=== PATIENT | male | born 1945 | race Caucasian/White ===

== ENCOUNTER → 2016-09-02 | Outpatient (CLI) | payer OTHER, BC ==
[~2016-09-02] MED LIST: ALPR-411 PO; ASPI81TA28 PO; GLUC1TAB8 PO; IBUP-103 PO; MULT-845 PO; OMEG10007 PO; PRDFOPS; [UNRECOGNIZED DRUG - OTHER]
--- NOTE | 2016-09-02 10:37 | DIAGNOSTIC IMAGING REPORT ---
RENAL ULTRASOUND CLINICAL HISTORY: Urinary tract infection. Urinary retention. COMPARISON STUDY: Renal ultrasound August 20, 2015. TECHNIQUE: Sonography of the kidneys and the urinary bladder was performed. FINDINGS: The right kidney measures 10.3 cm in maximal dimension and the left measures 10.7 cm. There is no hydronephrosis. Renal echogenicity is normal. A few tiny renal cysts are noted. There is minimal renal cortical thinning. No mass is identified by sonography. No calculi are identified. There is no significant post void residual. The post void volume of the bladder with 3 cc. Note is again made of irregular wall thickening of the bladder which has been shown on prior exams. The wall appears trabeculated. IMPRESSION: 1. No hydronephrosis. 2. No significant post void residual. 3. Irregular trabeculated bladder wall which has been shown on prior exams. While nonspecific, this may be related to bladder outlet obstruction. Electronically signed by: Ariel Goodwin M.D. 09/02/2016 10:36 AM Dictated Date/Time: 09/02/2016 10:32 AM
== END | disposition home or self-care (01) ==
LOC: C.ULTR 09:24
PROVIDERS: ATTEND Urology
DX: N39.0 Urinary tract infection, site not specified (principal); R33.9 Retention of urine, unspecified

== ENCOUNTER → 2016-09-05 | Outpatient (CLI) | payer OTHER, BC | END | disposition home or self-care (01) | LOC: C.LAB1850 12:52 | PROVIDERS: ATTEND Internal Medicine | DX: Z11.59 Encounter for screening for other viral diseases (principal) ==

== ENCOUNTER → 2016-11-15 | Outpatient (CLI) | payer OTHER, BC ==
[2016-11-15 18:08] LABS: BLOOD UREA NITROGEN 23 mg/dl (7-18); BUN/CREATININE RATIO 16.4 (10-20); CALCIUM 9.3 mg/dl (8.5-10.1); CARBON DIOXIDE 29 mmol/L (21-32); CHLORIDE 102 mmol/L (98-107); GLUCOSE 100 mg/dl (70-99); POTASSIUM 3.6 mmol/L (3.5-5.1); SODIUM 137 mmol/L (136-145)
== END | disposition home or self-care (01) ==
LOC: C.LAB1850 17:24
PROVIDERS: ATTEND Internal Medicine
DX: I10 Essential (primary) hypertension (principal)

== ENCOUNTER → 2017-02-14 | Outpatient (CLI) | payer OTHER, BC ==
[2017-02-14 17:56] LABS: BLOOD UREA NITROGEN 33 mg/dl (7-18); BUN/CREATININE RATIO 25.3 (10-20); CARBON DIOXIDE 28 mmol/L (21-32); CHLORIDE 105 mmol/L (98-107); GLUCOSE 95 mg/dl (70-99); POTASSIUM 3.8 mmol/L (3.5-5.1); SODIUM 139 mmol/L (136-145)
== END | disposition home or self-care (01) ==
LOC: C.LAB1850 16:50
PROVIDERS: ATTEND Internal Medicine
DX: I10 Essential (primary) hypertension (principal)

== ENCOUNTER → 2017-06-16 | Outpatient (CLI) | payer OTHER, BC ==
--- NOTE | 2017-06-16 14:33 | DIAGNOSTIC IMAGING REPORT ---
TWO VIEW CHEST CLINICAL HISTORY: Ulnar neuropathy. FINDINGS: PA and lateral chest radiographs are compared to study dated 07/23/2015. The heart is mildly enlarged and there is atherosclerotic calcification of the thoracic aorta. Emphysema and chronic interstitial thickening are similar to previous. No airspace consolidation or pleural effusion is identified. There is no pneumothorax. The skeletal structures are osteopenic. Degenerative change and scoliosis are noted throughout the thoracic spine. IMPRESSION: Cardiomegaly and emphysema. No acute cardiopulmonary abnormality is identified. Electronically signed by: Chava Park M.D. 06/16/2017 2:31 PM Dictated Date/Time: 06/16/2017 2:29 PM
--- NOTE | 2017-06-16 14:34 | DIAGNOSTIC IMAGING REPORT ---
RIGHT ELBOW 3 VIEWS CLINICAL HISTORY: Ulnar neuropathy. FINDINGS: 3 views of the right elbow are obtained. No prior studies are available for comparison at the time of dictation. The skeletal structures are osteopenic. No fracture is seen. The joint spaces of the elbow are preserved. An enthesophyte is seen at the triceps insertion. No joint effusion is identified. Mild dorsal soft tissue swelling is noted. IMPRESSION: No acute bony abnormality is seen in the left elbow. Electronically signed by: Chava Park M.D. 06/16/2017 2:32 PM Dictated Date/Time: 06/16/2017 2:32 PM
--- NOTE | 2017-06-16 14:35 | DIAGNOSTIC IMAGING REPORT ---
THORACIC SPINE 3 VIEWS CLINICAL HISTORY: Ulnar neuropathy. FINDINGS: AP, lateral, and swimmer's views of the thoracic spine are correlated with lateral chest x-ray dated 06/30/2015. The skeletal structures are osteopenic. There is no radiographic evidence of fracture or malalignment. Vertebral body height and alignment are maintained throughout the thoracic spine. Anterior osteophytes are seen throughout. There is multilevel degenerative disc space narrowing and endplate sclerosis. The transverse processes and pedicles are grossly intact as seen on the frontal view. Mild thoracic scoliosis is suggested. The imaged lung parenchyma appears clear. IMPRESSION: Osteopenia and spondylotic change as above. No acute bony abnormality is seen involving the thoracic spine. Electronically signed by: Chava Park M.D. 06/16/2017 2:34 PM Dictated Date/Time: 06/16/2017 2:33 PM
[2017-06-16 15:04] LABS: BASO % 0.3 %; BASO ABS # 0.02 K/uL (0-0.2); COMPLETE YES; EOS % 0.8 %; HEMATOCRIT 37.7 % (42-52); IG% 0.4 %; LYMPH % 15.9 %; LYMPH ABS # 1.21 K/uL (1.2-3.4); MEAN CORPUSCULAR HEMOGLOBIN 30.9 pg (25-34); MEAN CORPUSCULAR HGB CONC 32.9 g/dl (32-36); MEAN PLATELET VOLUME 10.5 fL (7.4-10.4); MONO % 7.4 %; NEUT % 75.2 %; PLATELET COUNT 275 K/uL (130-400); RED BLOOD COUNT 4.01 M/uL (4.7-6.1); WHITE BLOOD COUNT 7.59 K/uL (4.8-10.8)
[2017-06-16 15:22] LABS: BLOOD UREA NITROGEN 23 mg/dl (7-18); BUN/CREATININE RATIO 21.3 (10-20); CALCIUM 9.2 mg/dl (8.5-10.1); CARBON DIOXIDE 27 mmol/L (21-32); CHLORIDE 103 mmol/L (98-107); GLUCOSE 98 mg/dl (70-99); POTASSIUM 3.7 mmol/L (3.5-5.1); SODIUM 137 mmol/L (136-145)
== END | disposition home or self-care (01) ==
LOC: C.RAD1850 13:54
PROVIDERS: ATTEND Internal Medicine
DX: G56.20 Lesion of ulnar nerve, unspecified upper limb (principal)

== ENCOUNTER → 2017-08-04 | Outpatient (CLI) | payer OTHER, BC ==
[2017-08-04 10:49] LABS: BASO % 0.2 %; BASO ABS # 0.01 K/uL (0-0.2); EOS % 3.6 %; EOS ABS # 0.21 K/uL (0-0.5); HEMATOCRIT 42.8 % (42-52); HEMOGLOBIN 14.2 g/dL (14.0-18.0); IG# 0.01 K/uL (0.00-0.02); LYMPH % 29.9 %; LYMPH ABS # 1.75 K/uL (1.2-3.4); MEAN CELL VOLUME 93.9 fL (80-100); MEAN CORPUSCULAR HEMOGLOBIN 31.1 pg (25-34); MEAN CORPUSCULAR HGB CONC 33.2 g/dl (32-36); MEAN PLATELET VOLUME 11.4 fL (7.4-10.4); MONO % 8.4 %; MONO ABS # 0.49 K/uL (0.11-0.59); NEUT % 57.7 %; NEUT ABS # 3.38 K/uL (1.4-6.5); PLATELET COUNT 190 K/uL (130-400); RED CELL DISTRIBUTION WIDTH CV 13.6 % (11.5-14.5); WHITE BLOOD COUNT 5.85 K/uL (4.8-10.8)
[2017-08-04 10:52] LABS: BLOOD UREA NITROGEN 29 mg/dl (7-18); CALCIUM 9.4 mg/dl (8.5-10.1); CARBON DIOXIDE 29 mmol/L (21-32); CHOLESTEROL 236 mg/dl (0-200); GLUCOSE 103 mg/dl (70-99); POTASSIUM 4.1 mmol/L (3.5-5.1); SODIUM 136 mmol/L (136-145)
[2017-08-04 10:57] LABS: LDL CHOLESTEROL CALCULATED 145 mg/dl
[2017-08-04 11:13] LABS: HEMOGLOBIN A1C 5.7 % (4.5-5.6)
== END | disposition home or self-care (01) ==
LOC: C.LAB1850 09:25
PROVIDERS: ATTEND Internal Medicine
DX: Z00.00 Encounter for general adult medical examination without abnormal findings (principal); N40.1 Benign prostatic hyperplasia with lower urinary tract symptoms; R33.9 Retention of urine, unspecified; I10 Essential (primary) hypertension; R73.9 Hyperglycemia, unspecified